=== PATIENT | male | born 1980 | race Caucasian/White ===

== ENCOUNTER → 2017-09-15 | Outpatient (CLI) | payer BC ==
--- NOTE | 2017-09-15 14:11 | Diagnostic Imaging Report ---
PROCEDURE: MRI right lower extremity without contrast. TECHNIQUE: Multiplanar, multisequence non contrast-enhanced MRI of the right lower extremity was accomplished. INDICATION: Soft tissue injury. COMPARISON: There are no prior studies available for comparison. Reportedly, the patient had a splinter in the right anterior thigh one year ago. She still has thigh pain. FINDINGS: A marker was placed over the entry site. There is no mass or abscess identified in this area. There is no sign of a radiopaque foreign body either. There is no abnormal signal involving the subcutaneous fat or the musculature to suggest an abnormality. There is no abnormal signal arising from the femur itself. IMPRESSION: There is no abnormality in the soft tissues of the right thigh to account for the patient's pain. There is no sign of a radiopaque foreign body either. Dictated by: Dictated on workstation # [id number]
== END ==
LOC: RAD 07:10
PROVIDERS: ATTEND Orthopaedic Surgery
DX: S79.921A Unspecified injury of right thigh, initial encounter (principal)

== ENCOUNTER → 2018-05-11 | Outpatient (CLI) | payer BC ==
[~2018-05-11] VITALS: Ht 182.9 cm; Wt 115.7 kg
[~2018-05-11] MED LIST: LIDOCAINE 1% INJ 20 ML 20 ML VIAL INJ ONE; LIDOCAINE 1% INJ 20 ML 20 ML VIAL ONE
--- NOTE | 2018-05-11 10:54 | Diagnostic Imaging Report ---
EXAMINATION: Right shoulder injection for MRI. INDICATION: Shoulder pain There are no prior studies available for comparison. Following aseptic preparation of the skin and administration of local anesthesia a 22-gauge needle was advanced into the glenohumeral joint. Subsequently 12 cc mixture of Gadavist, Omnipaque 240 and sodium chloride was infused. The patient tolerated the procedure well and was sent to the MR suite in good condition. 59.8 seconds fluoroscopy time was utilized. IMPRESSION: There has been successful injection of the right glenohumeral joint. MRI is pending for further study. Dictated by: Dictated on workstation # [id number]
--- NOTE | 2018-05-11 12:33 | Diagnostic Imaging Report ---
EXAMINATION: Magnetic resonance imaging of the right shoulder with intra-articular contrast. DATE: May 11, 2018. COMPARISON: Right shoulder arthrogram of May 11, 2018. HISTORY: 37-year-old male, right shoulder pain. Evaluation for labral tear. TECHNIQUE: Magnetic Resonance Imaging sequences were performed of the shoulder following the intra-articular administration of contrast. FINDINGS: ROTATOR CUFF, LIGAMENTS, TENDONS, AND MUSCLES: The supraspinatus, infraspinatus, and teres minor tendons are intact. The contrast within the subscapularis muscle and in the region of the subscapularis tendon may relate to a mixed injection. There is no full-thickness tear of the subscapularis tendon. The additional rotator cuff muscle signal is unremarkable. There is normal rotator cuff muscle bulk. LONG HEAD OF BICEPS: The biceps labral attachment and long head of the biceps tendon are intact. The long head of the biceps tendon is normally positioned within the bicipital groove. GLENOHUMERAL JOINT: The humeral head is mildly posteriorly subluxed. There is contrast undermining the biceps labral attachment which is irregular in morphology. This is compatible with a superior labral tear. This extends anteriorly and likely also involves the anterior/superior labrum. There is also a tear involving the anterior/inferior labrum extending across the length of the inferior labrum to also involve the posterior inferior labrum. There is a small paralabral cyst adjacent to the posterior inferior labrum at approximately the 7 o'clock to 8 o'clock position which measures 4 x 4 x 4 mm in size. There is no obvious extension of the labral tear to involve the posterior/superior labrum. There is no visualized cartilage defect. There are small subchondral cystic changes in the inferior glenoid. There is a tear of the humeral attachment of the posterior band of the inferior glenohumeral ligament complex, well illustrated on coronal T1 fat saturation sequence image 18, with abnormal extension of the contrast within the glenohumeral joint below the level of the expected margin of the axillary pouch. There is no identified intra-articular body or prominent synovitis. ACROMIOCLAVICULAR JOINT: The acromioclavicular joint is normally aligned. The coracoclavicular and coracoacromial ligaments are intact. There are mild acromioclavicular degenerative changes without large undersurface osteophyte. BONE: There is no os acromiale. Additional osseous morphology is unremarkable. There are small subchondral cystic changes in the inferior glenoid. There is no acute fracture, bone contusion, or evidence of osteonecrosis. BURSAE AND SOFT TISSUES: The bursae and soft tissue surrounding the shoulder are unremarkable. IMPRESSION: 1. Extensive labral tear with at least involvement of the superior labrum, extensive portions of the anterior labrum, entire inferior labrum, and posterior inferior labrum. There is a small paralabral cyst adjacent to the posterior inferior labrum measuring 4 x 4 x 4 mm in size. 2. Tear at the humeral attachment of the posterior band of the inferior glenohumeral ligament complex. 3. Mild glenohumeral osteoarthritis with small subchondral cystic changes in the inferior glenoid. No discretely visible cartilage defect. 4. Negative for full-thickness rotator cuff tendon tear. 5. Intact and normally positioned long head of the biceps tendon. 6. Mild acromioclavicular degenerative changes without large undersurface osteophyte. 7. No acute fracture, bone contusion, or evidence of osteonecrosis. Dictated by: Dictated on workstation # [id number]
== END ==
LOC: RAD 09:09
PROVIDERS: ATTEND Orthopaedic Surgery
DX: S43.491A Other sprain of right shoulder joint, initial encounter (principal); M25.811 Other specified joint disorders, right shoulder; M19.011 Primary osteoarthritis, right shoulder
CPT/HCPCS: 23350; 73040; 73222

== ENCOUNTER 2022-04-15 05:30 | Outpatient (CLI) | payer BC ==
[~2022-04-15] VITALS: Ht 185.5 cm; Wt 95.9 kg
[2022-04-15] MEDS ORDERED: FISH OIL (14:07)
[2022-04-15] MEDS ORDERED: MULTI VITAMIN (14:07)
[2022-04-15] MEDS ORDERED: JOINT SUPPLEMENT (14:07)
[2022-04-15] MEDS ORDERED: [UNRECOGNIZED DRUG - OTHER] (14:07)
== END 2022-04-15 14:13 | disposition home or self-care (01) ==
LOC: PREOP 05:30
PROVIDERS: ATTEND Podiatrist Foot & Ankle Surgery
DX: Z01.818 Encounter for other preprocedural examination (principal)

== ENCOUNTER 2022-04-22 08:44 | Day surgery (SDC) | payer BC ==
[2022-04-22] VITALS (10 sets, daily range): BP systolic 120–132; BP diastolic 82–883
[~2022-04-22] VITALS: Ht 185 cm; Wt 95.9 kg
[~2022-04-22 08:44] MED LIST changes: +FISH OIL; +JOINT SUPPLEMENT; -LIDOCAINE 1% INJ 20 ML 20 ML VIAL INJ ONE; -LIDOCAINE 1% INJ 20 ML 20 ML VIAL ONE; +MULTI VITAMIN; +[UNRECOGNIZED DRUG - OTHER]
[2022-04-22] MEDS ORDERED: ceFAZolin INJECTION 1,000 MG in NS (IVPB) 50 ML IV ONE (08:45)
[2022-04-22] MEDS ORDERED: LACTATED RINGERS 1,000 ML IV PRN (08:45)
[2022-04-22] MEDS ORDERED: LIDOCAINE 1% INJ 20 ML VIAL ONE (08:52)
[2022-04-22] MEDS ORDERED: BUPIVACAINE 0.5% 30 ML (SENSORCAINE) VIAL ONE (08:52)
--- NOTE | 2022-04-22 09:08 | Progress Note-Pre Operative ---
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
[2022-04-22] MEDS ORDERED: LIDOCAINE PF 2% 5 ML (XYLOCAINE) VIAL ONE (09:09)
[2022-04-22] MEDS ORDERED: proPOfol 200 MG/20 ML (DIPRIVAN) VIAL IV ONE (09:09)
[2022-04-22] MEDS ORDERED: SEVOFLURANE (ULTANE) 15 ML INHAL SOLN ONE ×2 (09:09→10:32)
[2022-04-22] MEDS ORDERED: fentaNYL INJ 100 MCG/2 ML AMP ONE (09:09)
[2022-04-22] MEDS ORDERED: ONDANSETRON 4 MG/2 ML (SDV) Z0FRAN ONE (09:09)
[2022-04-22] MEDS ORDERED: MIDAZOLAM 2 MG/2 ML (VERSED) VIAL ONE (09:10)
[2022-04-22] MEDS ORDERED: BUPIVACAINE 0.5% 30 ML (SENSORCAINE) VIAL INJ ONE (10:05)
[2022-04-22] MEDS ORDERED: LIDOCAINE 1% INJ 20 ML VIAL INJ ONE (10:06)
[2022-04-22] MEDS ORDERED: KETOROLAC 30 MG/ML VIAL ONE (10:33)
--- NOTE | 2022-04-22 10:52 | Progress Note-Post Operative ---
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
[2022-04-22] MEDS ORDERED: CEPH500C PO (10:55)
[2022-04-22] MEDS ORDERED: ACHD5005 PO (10:55)
[2022-04-22] MEDS ORDERED: LACTATED RINGERS 1,000 ML IV SCH (11:00)
[2022-04-22] MEDS ORDERED: HYDROcodone/APAP 5 MG/325 MG (LORTAB) TAB PO PRN (11:00)
[2022-04-22] MEDS ORDERED: HYDROmorphone 2 MG/ML VIAL (DILAUDID) IV ONE (11:00)
[2022-04-22] MEDS ORDERED: ONDANSETRON 4 MG/2 ML (SDV) Z0FRAN IVP PRN (11:00)
--- NOTE | 2022-04-22 11:23 | Diagnostic Imaging Report ---
Indication: Postop follow-up COMPARISON: None FINDINGS: 2 radiographic views of the right foot were obtained. Osteotomy changes to the 2nd toe are noted. Indwelling Andre wires present traversing the phalanges of the 2nd toe. Metallic screw is also present within the head of the 2nd metatarsal. No unexpected radiopaque foreign bodies are seen. There is small amount of soft tissue emphysema. Osseous structures are otherwise intact. Joint spaces are maintained. IMPRESSION: 1. Postop changes to the right foot as above. No unexpected radiopaque foreign bodies. Dictated by: Dictated on workstation # [id number]
--- NOTE | 2022-04-22 13:45 | Physical Therapy Ortho Eval ---
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 Entry Into Home: Ramp, Stairs With Railing Motor Control Motor Control: Motor Control WNL ROM ROM: WFL Strength Strength: WFL Transfer SCALE: Activities may be completed with or without assistive devices. 9-Kcwiptvlkn-gvmsdtd completes the activity by him/herself with no assistance from a helper. 5-Set-up or Clean-up Assistance-helper sets up or cleans up; patient completes activity. [place] assists only prior to or following the activity. 4-Supervision or Touching Assistance-helper provides verbal cues and/or touching/steadying and/or contact guard assistance as patient completes activity. Assistance may be provided throughout the activity or intermittently. 3-Partial/Moderate Assistance-helper does LESS THAN HALF the effort. [place] lifts, holds or supports trunk or limbs, but provides less than half the effort. 2-Substantial/Maximal Assistance-helper does MORE THAN HALF the effort. [place] lifts or holds trunk or limbs and provides more than half the effort. 0-Ogrzsxrxv-vvzcne does ALL the effort. Patient does none of the effort to complete the activity. Or, the assistance of 2 or more helpers is required for the patient to complete the activity. If activity was not attempted, code reason: 7-Patient Refused. 9-Not Applicable-not attempted and the patient did not perform the activity before the current illness, exacerbation or injury. 10-Not Attempted due to Environmental Limitations-(lack of equipment, weather restraints, etc.). 88-Not Attempted due to Medical Conditions or Safety Concerns. Transfers (B, C, W/C) (QC): 6 Gait Right Lower Extremity: Right Weight Bearing Status RLE: Non Weight Bearing Left Lower Extremity: Left Weight Bearing Status LLE: Full Weight Bearing Other Weight Bearing Inst.: Heel contact for balance and transfers Summary/Comments Patient ambulated 150' with bilateral axillary crutches with independence and went up and down 1 step using crutches with cues for foot placement with CGA. Treatment Rendered Treatment: Therapeutic Exercises, Gait Train, Step Train Exercise Instruction: Heel Slides, Ankle Pumps Assessment/Goals Goal Time Frame: 1 Visit Understands HEP: Yes Safe Ambulation: Yes Plan Treatment Plan: Discharge PT/Family Agrees to Plan: Yes Time Time In: 1305 Time Out: 1315 Total Billed Treatment Time: 10 Billed Treatment Time 1 visit ZACH KWOK PT Apr 22, 2022 13:45
--- NOTE | 2022-04-22 14:16 | Anesthesia-General Post-Op ---
General Patient Condition Mental Status/LOC: Same as Preop Cardiovascular: Satisfactory Nausea/Vomiting: Absent Respiratory: Satisfactory Pain: Controlled Complications: Absent Post Op Complications Complications None Follow Up Care/Instructions Patient Instructions None needed. Anesthesia/Patient Condition Patient Condition Patient is doing well, no complaints, stable vital signs, no apparent adverse anesthesia problems. No complications reported per nursing. D/C home per [facility] [place] Criteria: Yes SWETHA CONNOLLY CRNA Apr 22, 2022 14:16
--- NOTE | 2022-04-22 18:38 | OPERATIVE REPORT ---
DATE OF SERVICE: 04/22/2022 SURGEON: Nohemy Castillo DPM PREOPERATIVE DIAGNOSES: 1. Hammer digit syndrome, right second toe. 2. Hypertrophic second metatarsal, right foot. POSTOPERATIVE DIAGNOSES: 1. Hammer digit syndrome, right second toe. 2. Hypertrophic second metatarsal, right foot. PROCEDURE: 1. Reduction of second hammertoe, right foot with wire fixation. 2. Second metatarsal osteotomy with screw fixation. WOUND CLASS: Clean. ANESTHESIA: General. HEMOSTASIS: Pneumatic thigh tourniquet at 250 mmHg. INDICATIONS: This is a 41-year-old male presents complaining of a painful right foot. Conservative therapy has met with unsatisfactory results and the patient is agreeable to surgical intervention after risks and complications were discussed at length. No guarantees were extended. The patient is willing to proceed. DESCRIPTION OF PROCEDURE: The patient was brought back to the operating table and placed in secure supine position. General anesthetic was then induced. Appropriate timeout was performed. Preprocedure anesthetic was then induced to the right foot, the second ray utilizing 1:1 mixture of 1% Xylocaine and 0.5% Marcaine injected in a digital block as well as a block to the mid metatarsal area. The right foot was prepped and draped in normal sterile manner. The right foot was then elevated and allowed to exsanguinate after which the tourniquet was inflated to 250 mmHg. Attention was then directed to the dorsal aspect of the right foot where a 5 cm longitudinal linear incision was created from the surgical neck of the second metatarsal extending to the distal interphalangeal joint of the second toe. The incision was deepened in the same plane with great care to identify and retract all vital neurovascular structures. Only necessary blood vessels were cauterized as encountered. The incision was deepened down to the extensor tendon where the Z-slide lengthening of the tendon was performed. This allowed the tendon to be reflected distally and proximally. Once it was reflected proximally, a dorsal capsulorrhaphy was performed to the second metatarsophalangeal joint with a release of the extensor blanchard. Next, a Yayo type osteotomy was performed. Utilizing a power sagittal saw, the capital fragment was translocated proximally and fixated in its corrected position, which was proximally slightly medial with a 2.0 snap-off screw of 14 mm length. Fixation and position was found to be appropriate and confirmed with C-arm. The excess bone to the second metatarsal head was resected utilizing a rongeur followed by a power bur. Excellent range of motion to the second metatarsophalangeal joint was appreciated without any crepitation. There was also a release of the medial collateral ligament. This allowed for better alignment of the second digit. Attention was then directed to the dorsal aspect of the proximal interphalangeal joint where a capsulorrhaphy was performed as well as release of the medial and lateral collateral ligaments. Next, a power sagittal saw was used to create a PEG out of the distal portion of the proximal phalanx. This was further contoured with a power bur and a power bur was also utilized to create a hole in the base of the middle phalanx for the peg-in-hole type arthrodesis. Next, a 0.054 smooth K-wire was driven down the toe holding the digit in its corrected position. Excellent alignment was appreciated this time. There is no significant elevation to the proximal phalanx at the metatarsophalangeal joint. For this reason, we did not do a flexor tendon transfer or [place] type of procedure. The wound was flushed with copious amounts of normal saline throughout the procedure and closure was then performed in layers. Deep closure was performed with 3-0 Vicryl superficial with 4-0 Vicryl skin closure with 4-0 Prolene in a horizontal mattress type stitch. The excess K-wire was cut and protective ball placed over the end of the wire. Postoperative injection consisted of 10 mL of 0.5% Marcaine injected in a local infusion to the surgical site. Postoperative dressing consisted of Betadine-soaked Adaptic, sterile 4 x 4's, sterile Kerlix all secured with a Coban wrap. The patient tolerated the anesthesia and procedure well and was transported from the operating room to the recovery room with vital signs stable and vascular status intact to all digits to the right foot. He was given a prescription for KEFLEX AND VICODIN. He is to follow up in my office in 10 days period of time or sooner if necessary. Job ID: [id number] DocumentID: [id number] Dictated Date: 04/22/2022 11:03:08 Corporate Representative Date: 04/22/2022 18:36:00 Dictated By: NAINA VALDEZ
== END 2022-04-22 13:20 | disposition home or self-care (01) ==
LOC: SDC 08:44
PROVIDERS: ATTEND Podiatrist Foot & Ankle Surgery
DX: M20.41 Other hammer toe(s) (acquired), right foot (principal); M89.371 Hypertrophy of bone, right ankle and foot
CPT/HCPCS: 28285; 28297; 73620; 87081; 97161; C1713 ×2